=== PATIENT | male | born 1950 | race Caucasian/White ===

== ENCOUNTER 2016-11-16 08:54 | Inpatient (IN) | payer MEDICARE, BC ==
[~2016-11-16] VITALS: Ht 167.6 cm; Wt 67.8 kg
[~2016-11-16 08:54] MED LIST: GUAI1TAB21 PO
[2016-11-16 09:36] LABS: HEMATOCRIT 40.3 % (39.2-51.8); HEMOGLOBIN 13.2 g/dL (13.7-18.0); WHITE BLOOD COUNT 21.2 x10^3/uL (3.4-10)
[2016-11-16 09:41] LABS: ASPARTATE AMINO TRANSFERASE 23 U/L (15-37); BLOOD UREA NITROGEN 21 mg/dL (7-18)
[2016-11-16] MEDS ORDERED: ALBU0.63 NEB (09:47)
[2016-11-16 10:21] LABS: DIFF TOTAL CELLS COUNTED 100 CELL DIFF
[2016-11-16 10:28] LABS: ACETAMINOPHEN < 2 mcg/mL (10-30); IS PT STATUS REG ER OR PRE ER? YES
[2016-11-16 10:29] LABS: VERIFY COUNTS? YES
[2016-11-16] MEDS ORDERED: CEFTRIAXONE PMX 1GM/50ML 50 ML ONE (10:55)
[2016-11-16] MEDS ORDERED: CEFTRIAXONE PMX 1GM/50ML 50 ML IV ONE (11:30)
[2016-11-16] MEDS ORDERED: AZITHROMYCIN 500 MG in SODIUM CHLORIDE 0.9% 250 ML IV ONE (11:30)
[2016-11-16 11:34] LABS: ABG COLLECTION SITE RIGHT RADIAL; COLLATERAL CIRCULATION TESTING NORMAL
[2016-11-16] MEDS ORDERED: PROPOFOL 100 ML IV ONE (12:32)
[2016-11-16] MEDS ORDERED: SUCCINYLCHOLINE 20 MG/ML, 10ML IVPush ONE (13:00)
[2016-11-16] MEDS ORDERED: ETOMIDATE 20 MG/10 ML IVPush ONE (13:00)
[2016-11-16] MEDS ORDERED: SODIUM CHLORIDE 0.9% 1,000ML IVBOLUS ONE ×3 (13:00→18:30)
[2016-11-16] MEDS ORDERED: SODIUM CHLORIDE 0.9% 1,000 ML IV SCH (14:03)
[2016-11-16] MEDS ORDERED: ENOXAPARIN 40 MG/0.4 ML ONE (14:16)
[2016-11-16] MEDS ORDERED: methylPREDNISolone SOD SUCC 40 MG/ML ONE (14:16)
[2016-11-16] MEDS: methylPREDNISolone SOD SUCC 40 MG/ML IVPush SCH ×2 (14:16→21:17)
[2016-11-16] MEDS: ENOXAPARIN 40 MG/0.4 ML SQ SCH (14:17)
[2016-11-16] MEDS ORDERED: DOCUSATE 100 MG CAPSULE PO PRN (14:30)
[2016-11-16] MEDS ORDERED: BISACODYL 10 MG SUPP PR PRN (14:30)
[2016-11-16] MEDS ORDERED: POLYETHYLENE GLYCOL 17 GM PACKET PO PRN (14:30)
[2016-11-16] MEDS ORDERED: ACETAMINOPHEN 325 MG TABLET PO PRN (14:30)
[2016-11-16 14:50] LABS: ABG COLLECTION SITE RIGHT BRACHIAL
[2016-11-16] MEDS ORDERED: PROPOFOL 100 ML IV PRN (14:58)
[2016-11-16] MEDS ORDERED: LIDOCAINE-MPF 1%, 2ML ENDO PRN (15:00)
[2016-11-16] MEDS ORDERED: PHARMACY MAY ADJ FOR RENAL FX MC SCH (15:00)
[2016-11-16] MEDS: ALBUTEROL/IPRATROPIUM 2.5MG/0.5MG, 3 ML INLINE SCH ×3 (15:10→22:30)
[2016-11-16 16:16] VITALS: BP 90/56
[2016-11-16] MEDS ORDERED: MAGNESIUM SULFATE PMX 4GM/100M 100 ML IV ONE (17:00)
[2016-11-16] MEDS: FAMOTIDINE 20 MG/2 ML IVPush SCH (21:17)
[2016-11-17] MEDS: methylPREDNISolone SOD SUCC 40 MG/ML IVPush SCH ×4 (02:53→20:40)
[2016-11-17] MEDS: ALBUTEROL/IPRATROPIUM 2.5MG/0.5MG, 3 ML INLINE SCH ×6 (03:15→21:38)
[2016-11-17 05:01] LABS: ABG COLLECTION SITE RIGHT RADIAL; COLLATERAL CIRCULATION TESTING NORMAL
[2016-11-17 05:02] LABS: HEMATOCRIT 36.9 % (39.2-51.8); HEMOGLOBIN 12.2 g/dL (13.7-18.0)
[2016-11-17 05:24] LABS: ASPARTATE AMINO TRANSFERASE 25 U/L (15-37); BLOOD UREA NITROGEN 19 mg/dL (7-18)
[2016-11-17 05:54] LABS: DIFF TOTAL CELLS COUNTED 100 CELL DIFF
[2016-11-17 05:56] LABS: VERIFY COUNTS? YES
[2016-11-17] MEDS: AZITHROMYCIN 500 MG in SODIUM CHLORIDE 0.9% 250 ML IV SCH (07:11)
[2016-11-17] MEDS: FAMOTIDINE 20 MG/2 ML IVPush SCH ×2 (09:16→20:40)
[2016-11-17] MEDS: CEFTRIAXONE PMX 1GM/50ML 50 ML IV SCH (11:09)
[2016-11-17] MEDS ORDERED: PROPOFOL 10 MG/ML, 100ML IV ONE (11:20)
[2016-11-17] MEDS ORDERED: ETOMIDATE 20 MG/10 ML ONE (11:20)
[2016-11-17] MEDS ORDERED: MAGNESIUM SULFATE PMX 2GM/50ML 50 ML IV ONE (12:30)
[2016-11-17] MEDS ORDERED: POTASSIUM PHOSPHATE 44 MEQ in SODIUM CHLORIDE 0.9% 500 ML IV ONE (12:30)
[2016-11-17] MEDS ORDERED: SODIUM CHLORIDE 0.9%, 500ML IVBOLUS ONE ×3 (12:30→19:30)
[2016-11-17] MEDS: ENOXAPARIN 40 MG/0.4 ML SQ SCH (13:57)
[2016-11-17] MEDS: SODIUM CHLORIDE 0.9% 1,000 ML IV SCH (17:37)
[2016-11-18] MEDS: SODIUM CHLORIDE 0.9% 1,000 ML IV SCH ×3 (00:27→18:16)
[2016-11-18] MEDS ORDERED: SODIUM CHLORIDE 0.9%, 500ML IVBOLUS ONE ×2 (00:30→10:30)
[2016-11-18] MEDS: ALBUTEROL/IPRATROPIUM 2.5MG/0.5MG, 3 ML INLINE SCH ×6 (02:15→21:11)
[2016-11-18] MEDS: methylPREDNISolone SOD SUCC 40 MG/ML IVPush SCH ×3 (02:34→20:42)
[2016-11-18 04:42] LABS: ABG COLLECTION SITE RIGHT RADIAL; COLLATERAL CIRCULATION TESTING NORMAL
[2016-11-18 04:46] LABS: HEMATOCRIT 33.6 % (39.2-51.8); HEMOGLOBIN 10.5 g/dL (13.7-18.0); WHITE BLOOD COUNT 9.7 x10^3/uL (3.4-10)
[2016-11-18 05:10] LABS: BLOOD UREA NITROGEN 17 mg/dL (7-18)
[2016-11-18] MEDS: AZITHROMYCIN 500 MG in SODIUM CHLORIDE 0.9% 250 ML IV SCH (08:18)
[2016-11-18] MEDS: FAMOTIDINE 20 MG/2 ML IVPush SCH ×2 (09:16→20:42)
[2016-11-18] MEDS: CEFTRIAXONE PMX 1GM/50ML 50 ML IV SCH (14:01)
[2016-11-18] MEDS: ENOXAPARIN 40 MG/0.4 ML SQ SCH (14:02)
[2016-11-19] MEDS: ALBUTEROL/IPRATROPIUM 2.5MG/0.5MG, 3 ML INLINE SCH ×6 (02:02→21:59)
[2016-11-19] MEDS: SODIUM CHLORIDE 0.9% 1,000 ML IV SCH ×2 (03:20→07:23)
[2016-11-19 04:30] LABS: ABG COLLECTION SITE LEFT RADIAL; COLLATERAL CIRCULATION TESTING NORMAL
[2016-11-19 05:00] LABS: HEMATOCRIT 35.3 % (39.2-51.8); HEMOGLOBIN 11.6 g/dL (13.7-18.0); WHITE BLOOD COUNT 12.3 x10^3/uL (3.4-10)
[2016-11-19] MEDS: AZITHROMYCIN 500 MG in SODIUM CHLORIDE 0.9% 250 ML IV SCH (07:23)
[2016-11-19] MEDS: methylPREDNISolone SOD SUCC 40 MG/ML IVPush SCH ×2 (07:27→19:42)
[2016-11-19] MEDS: FAMOTIDINE 20 MG/2 ML IVPush SCH ×2 (09:04→19:42)
[2016-11-19 09:26] LABS: BLOOD UREA NITROGEN 19 mg/dL (7-18)
[2016-11-19] MEDS ORDERED: LIDOCAINE 4% TOPICAL SOLUTION 50 ML ONE (12:00)
[2016-11-19] MEDS: NS + 20MEQ KCL 1,000 ML IV SCH ×2 (14:07→21:55)
[2016-11-19] MEDS: CEFTRIAXONE PMX 1GM/50ML 50 ML IV SCH (14:08)
[2016-11-19] MEDS: ENOXAPARIN 40 MG/0.4 ML SQ SCH (14:13)
[2016-11-19] MEDS ORDERED: MIDAZOLAM 1 MG/ML, 5ML ONE (15:33)
[2016-11-19] MEDS ORDERED: MIDAZOLAM 1 MG/ML, 5ML IVPush ONE (16:00)
[2016-11-20] MEDS: ALBUTEROL/IPRATROPIUM 2.5MG/0.5MG, 3 ML INLINE SCH ×6 (02:14→22:41)
[2016-11-20 04:49] LABS: ABG COLLECTION SITE RIGHT RADIAL; COLLATERAL CIRCULATION TESTING NORMAL
[2016-11-20 05:06] LABS: HEMATOCRIT 33.5 % (39.2-51.8); HEMOGLOBIN 11.1 g/dL (13.7-18.0); WHITE BLOOD COUNT 9.6 x10^3/uL (3.4-10)
[2016-11-20] MEDS: NS + 20MEQ KCL 1,000 ML IV SCH (05:12)
[2016-11-20 06:32] LABS: BLOOD UREA NITROGEN 16 mg/dL (7-18)
[2016-11-20] MEDS: AZITHROMYCIN 500 MG in SODIUM CHLORIDE 0.9% 250 ML IV SCH (08:28)
[2016-11-20] MEDS: FAMOTIDINE 20 MG/2 ML IVPush SCH ×2 (08:29→19:48)
[2016-11-20] MEDS: methylPREDNISolone SOD SUCC 40 MG/ML IVPush SCH ×2 (08:29→19:48)
[2016-11-20] MEDS ORDERED: SODIUM CHLORIDE 0.9% 1,000 ML IV SCH ×2 (08:30→19:00)
[2016-11-20] MEDS: ENOXAPARIN 40 MG/0.4 ML SQ SCH (15:36)
[2016-11-20] MEDS: CEFTRIAXONE PMX 1GM/50ML 50 ML IV SCH (15:36)
[2016-11-20] MEDS ORDERED: POLYETHYLENE GLYCOL 17 GM PACKET PO PRN ×2 (19:00→19:30)
[2016-11-20] MEDS ORDERED: BISACODYL 10 MG SUPP PR PRN ×2 (19:00→19:30)
[2016-11-20] MEDS ORDERED: ACETAMINOPHEN 325 MG TABLET PO PRN ×2 (19:00→19:30)
[2016-11-20] MEDS ORDERED: PHARMACY MAY ADJ FOR RENAL FX MC SCH ×2 (19:00→19:30)
[2016-11-20] MEDS ORDERED: DOCUSATE 100 MG CAPSULE PO PRN ×2 (19:00→19:30)
[2016-11-20] MEDS ORDERED: LIDOCAINE-MPF 1%, 2ML ENDO PRN (19:30)
[2016-11-21] MEDS: ALBUTEROL/IPRATROPIUM 2.5MG/0.5MG, 3 ML INLINE SCH ×2 (02:35→07:09)
[2016-11-21 03:45] LABS: ABG COLLECTION SITE LEFT RADIAL; COLLATERAL CIRCULATION TESTING NORMAL
[2016-11-21 03:47] LABS: HEMATOCRIT 34.5 % (39.2-51.8); HEMOGLOBIN 11.4 g/dL (13.7-18.0); WHITE BLOOD COUNT 11.4 x10^3/uL (3.4-10)
[2016-11-21 04:27] LABS: BLOOD UREA NITROGEN 15 mg/dL (7-18)
[2016-11-21] MEDS: AZITHROMYCIN 500 MG in SODIUM CHLORIDE 0.9% 250 ML IV SCH (07:54)
[2016-11-21] MEDS ORDERED: LIDOCAINE 4% TOPICAL SOLUTION 50 ML ONE (08:30)
[2016-11-21] MEDS: FAMOTIDINE 20 MG/2 ML IVPush SCH (10:03)
[2016-11-21] MEDS: methylPREDNISolone SOD SUCC 40 MG/ML IVPush SCH (10:03)
[2016-11-21] MEDS ORDERED: morphine SULFATE 10 MG/ML, 1ML ONE (10:33)
[2016-11-21] MEDS ORDERED: LORazepam 2 MG/ML, 1ML ONE (10:33)
[2016-11-21] MEDS ORDERED: LORazepam 2 MG/ML, 1ML IVPush PRN (11:00)
[2016-11-21] MEDS ORDERED: morphine SULFATE 10 MG/ML, 1ML IVPush PRN (11:00)
== END 2016-11-21 11:00 | disposition expired | DRG 853 ==
LOC: ED 10:49 → EDIP 14:03 → CCU 14:59
PROVIDERS: ADMIT Hospitalist; ATTEND Hospitalist
PROC: 5A1955Z Respiratory Ventilation, Greater than 96 Consecutive Hours (ICD-10-PCS; principal; 2016-11-16)
PROC: 0BH17EZ Insertion of Endotracheal Airway into Trachea, Via Natural or Artificial Opening (ICD-10-PCS; 2016-11-16)
PROC: 0T9B70Z Drainage of Bladder with Drainage Device, Via Natural or Artificial Opening (ICD-10-PCS; 2016-11-16)
PROC: 0B9F8ZX Drainage of Right Lower Lung Lobe, Via Natural or Artificial Opening Endoscopic, Diagnostic (ICD-10-PCS; 2016-11-19)
PROC: 0B9J8ZZ Drainage of Left Lower Lung Lobe, Via Natural or Artificial Opening Endoscopic (ICD-10-PCS; 2016-11-21)
PROC: 0B9G8ZZ Drainage of Left Upper Lung Lobe, Via Natural or Artificial Opening Endoscopic (ICD-10-PCS; 2016-11-21)
PROC: 0B9F8ZZ Drainage of Right Lower Lung Lobe, Via Natural or Artificial Opening Endoscopic (ICD-10-PCS; 2016-11-21)
PROC: 0B978ZZ Drainage of Left Main Bronchus, Via Natural or Artificial Opening Endoscopic (ICD-10-PCS; 2016-11-21)
DX: A41.9 Sepsis, unspecified organism (principal); J96.21 Acute and chronic respiratory failure with hypoxia; E43 Unspecified severe protein-calorie malnutrition; G04.90 Encephalitis and encephalomyelitis, unspecified; Z99.11 Dependence on respirator [ventilator] status; G93.41 Metabolic encephalopathy; J18.9 Pneumonia, unspecified organism; J44.0 Chronic obstructive pulmonary disease with (acute) lower respiratory infection; J96.22 Acute and chronic respiratory failure with hypercapnia; J44.1 Chronic obstructive pulmonary disease with (acute) exacerbation; J98.11 Atelectasis; Z51.5 Encounter for palliative care; Z66 Do not resuscitate; Z86.73 Personal history of transient ischemic attack (TIA), and cerebral infarction without residual deficits; Z87.891 Personal history of nicotine dependence; Z68.24 Body mass index [BMI] 24.0-24.9, adult
CPT/HCPCS: 31500; 31624; 36415; 36600; 51702; 70450; 71010; 80048; 80053; 80307; 80329; 81001; 82040; 82140; 82607; 82746; 82803; 83605; 83735; 84100; 84443; 84478; 84484; 85025; 85610; 87040; 87070; 87081; 87205; 93005; 94002; 94003; 94640; 96365; 96367; 96372; J0456; J0696; J1650; J2250; J2704; J3480; J7620; G0479; G0480; J0330; J2060; J2270; J2920; J3475; J7030; J7040; J7050; S0028